=== PATIENT | male | born 1960 | race Caucasian/White ===

== ENCOUNTER 2017-04-27 08:59 | Emergency (ER) | payer BC, OTHER ==
[~2017-04-27] VITALS: Ht 175.3 cm; Wt 108.9 kg
[2017-04-27 09:00] VITALS: BP_SYST 134
[2017-04-27 10:22] LABS: EOSINOPHILS # (AUTO) 0.3 K/uL (0.0-0.4); HEMATOCRIT 44.3 % (36-54); HEMOGLOBIN 14.9 g/dL (14.0-18.0); LYMPHOCYTES # (AUTO) 0.9 K/uL (1.0-5.5); LYMPHOCYTES % (AUTO) 16.5 % (20.5-51.5); MEAN CORPUSCULAR HEMOGLOBIN 34 pg (27-31); MEAN CORPUSCULAR HGB CONC 34 % (32-36); MEAN CORPUSCULAR VOLUME 101 fL (79.0-98.0); MONOCYTES # (AUTO) 0.4 K/uL (0.0-1.0); MONOCYTES % (AUTO) 7.5 % (1.7-9.3); PLATELET COUNT (AUTO) 150 K/uL (130-430); RED BLOOD CELL COUNT(AUTO) 4.38 MIL/uL (4.2-6.2); RED CELL DISTRIBUTION WIDTH 15.8 % (9.0-15.0); WHITE BLOOD COUNT (AUTO) 5.8 K/uL (4.8-10.8)
[2017-04-27 10:25] LABS: BASOPHILS % (AUTO) 0.1 % (0.0-2.0); NEUTROPHILS # (AUTO) 4.2 K/uL (1.8-7.7); NEUTROPHILS % (AUTO) 69.9 % (40.0-70.0)
[2017-04-27 10:37] LABS: CALCIUM 8.6 mg/dL (8.4-11.0); CREATININE 1.26 mg/dL (0.55-1.30); POTASSIUM 4.4 mmol/L (3.5-5.1)
[2017-04-27 10:42] LABS: INR 1.2 (0.80-1.20); PROTHROMBIN TIME 11.8 SECS (9.5-12.5)
[2017-04-27 10:45] LABS: ALBUMIN 2.2 g/dL (3.4-4.8); TOTAL BILIRUBIN 3.7 mg/dL (0.0-1.0)
[2017-04-27 11:26] VITALS: BP_SYST 130
== END 2017-04-27 11:26 | disposition home or self-care (01) ==
LOC: SED 08:59
DX: R18.8 Other ascites (principal); K74.60 Unspecified cirrhosis of liver; I48.91 Unspecified atrial fibrillation; I10 Essential (primary) hypertension; Z90.89 Acquired absence of other organs
CPT/HCPCS: 36415; 49083; 80053; 84484; 85025; 85610; 85730; 93005; 99285; C1729

== ENCOUNTER 2017-08-29 08:05 | Day surgery (SDC) | payer BC ==
[2017-08-29] MEDS ORDERED: ALBUMIN HUMAN 25% 12.5 GM/50 ML VIAL IV ONE (08:23)
[2017-08-29 10:17] VITALS: BP_SYST 95
== END 2017-08-29 11:05 | disposition home or self-care (01) ==
LOC: SUS 08:05
DX: K70.31 Alcoholic cirrhosis of liver with ascites (principal); I10 Essential (primary) hypertension; I48.91 Unspecified atrial fibrillation; Z98.890 Other specified postprocedural states
CPT/HCPCS: 49083; C1729; G0378; P9046